=== PATIENT | male | born 1950 | race Caucasian/White ===

== ENCOUNTER → 2024-07-06 | Day surgery (SDC) | payer MEDICARE ==
[~2024-07-06] MED LIST: FENTANYL CITRATE/PF 100MCG/2 ML INJ ONE; FLOMAX0.4 MG PO; GEMTESA75 MG; GLYCOPYRROLATE INJ 0.2 MG/ML VIAL ONE; LIDOCAINE HCL 2% LOCAL INJ 5 ML SDV VIAL INJ ONE; LOSARTAN-HCTZ1 EAC2 PO; MELOXICAM7.5 MG PO; NEOSTIGMINE 1 MG/ML 10ML VIAL ONE; ONDANSETRON HCL INJ 2MG/ML 2ML 2 MG/ML VIAL ONE; PHENYLEPHRINE HCL 1% 10 MG/ML VIAL ONE; PLAQUENIL200 MG PO; PROPOFOL IV EMULSION 10 MG/ML 20 ML VIAL ONE; ROCURONIUM BROMIDE 1 ML IV ONE; SEVOFLURANE INHAL SOLN 250 ML PEN BTL ONE; VITAMIN D250 MCG PO
[2024-07-06] MEDS: LACTATED RINGER'S 1,000 ML ONE (08:41)
[2024-07-06 11:49] VITALS: TEMP 97.4
[2024-07-06] MEDS: FENTANYL CITRATE/PF 100MCG/2 ML INJ ONE (12:15)
[2024-07-06 13:30] VITALS: BP 150/75; PULSE 52; RESP 15; O2SAT 99
[2024-07-06] MEDS: ACETAMINOPHEN/CODEINE 300MG - 30MG TAB ONE (13:30)
== END | disposition home or self-care (01) ==
LOC: OR 08:20 → EDSEX 10:30
PROVIDERS: ATTEND Otolaryngology Otolaryngology/Facial Plastic Surgery
DX: J32.0 Chronic maxillary sinusitis (principal); J32.1 Chronic frontal sinusitis; J32.3 Chronic sphenoidal sinusitis; J32.2 Chronic ethmoidal sinusitis; J34.89 Other specified disorders of nose and nasal sinuses; J33.9 Nasal polyp, unspecified; I10 Essential (primary) hypertension; J45.909 Unspecified asthma, uncomplicated; M06.9 Rheumatoid arthritis, unspecified; M32.9 Systemic lupus erythematosus, unspecified; Z88.6 Allergy status to analgesic agent; Z01.810 Encounter for preprocedural cardiovascular examination; Z01.818 Encounter for other preprocedural examination; Z79.1 Long term (current) use of non-steroidal anti-inflammatories (NSAID); Z79.899 Other long term (current) drug therapy; Z85.46 Personal history of malignant neoplasm of prostate; Z85.038 Personal history of other malignant neoplasm of large intestine
CPT/HCPCS: 31259; 31267; 31276; 71046; 88304; 88342; 93005; J2003; J2371; J2405; J2704; J2710; J3010; J7121